=== PATIENT | male | born 1950 | race Caucasian/White ===

== ENCOUNTER 2022-07-28 11:00 | Outpatient (CLI) | payer MEDICARE | END 2022-07-28 11:01 | disposition home or self-care (01) | LOC: PET 11:00 | PROVIDERS: ATTEND Psychiatry & Neurology Neurology | DX: R41.89 Other symptoms and signs involving cognitive functions and awareness (principal); R41.3 Other amnesia; G30.9 Alzheimer's disease, unspecified; F02.80 Dementia in other diseases classified elsewhere, unspecified severity, without behavioral disturbance, psychotic disturbance, mood disturbance, and anxiety | CPT/HCPCS: 78803; 95816; 95957; A9552; 78815 ==

== ENCOUNTER 2022-08-06 09:28 | Outpatient (CLI) | payer MEDICARE | END 2022-08-06 09:29 | disposition home or self-care (01) | LOC: NM 09:28 | PROVIDERS: ATTEND Psychiatry & Neurology Neurology | DX: R41.3 Other amnesia (principal) | CPT/HCPCS: 78803; A9584 ==